=== PATIENT | male | born 1955 | race Caucasian/White ===

== ENCOUNTER 2019-06-27 15:30 | Observation (INO) ==
[2019-06-27] MEDS ORDERED: LORazepam 2 MG/1 ML VIAL IV STA ×3 (16:00→19:18)
[2019-06-27 16:16] LABS: Basophils % 0.3 % (0.0-0.8); Hematocrit 40.1 VOL% (42.0-52.0); Hemoglobin 13.4 GM/DL (14.0-18.0); Immature Granulocytes % 0.4 %; Immature Granulocytes Absolute 0.04 #; Lymphocytes # 1.2 10*3/uL (1.4-4.0); Lymphocytes % 12.3 % (21.2-54.2); Mean Corpuscular HGB Conc 33.4 GM/DL (32-36); Mean Corpuscular Volume 92.2 FL (87-102); Mean Platelet Volume 9.3 FL (9.6-12.0); Monocytes % 8.9 % (1.7-12.7); Neutrophils % 78.1 % (38.7-73.9); Platelet Count 313 T/CUMM (130-400); Red Blood Count 4.35 MC/CUMM (3.8-5.5); Red Cell Distribution Width 14.6 % (9.3-17.3)
[2019-06-27 16:24] LABS: PT Patient Result 11.1 SECS (9.6-12.2); Partial Thromboplastin Time 24.3 SECS (20.8-36.0)
[2019-06-27 16:40] LABS: Alanine Aminotransferase 26 U/L (16-61); Albumin 3.6 G/DL (3.4-5.0); Alkaline Phosphatase 128 U/L (45-117); Aspartate Amino Transferase 39 U/L (0-37); Blood Urea Nitrogen 23 MG/DL (7-18); Estimated Glom Filtration Rate 83 ML/MIN; Glucose 122 MG/DL (74-106); Osmolality,Calculated 281.5 MOS/KG (273-304); Total Protein 7.5 G/DL (6.4-8.3); Troponin I < 0.015 NG/ML (0.00-0.045)
[2019-06-27 18:01] LABS: Apearance,Urine CLEAR (Clear); Bilirubin,Urine Small mg/dL (Negative); Blood, Urine Large mg/dL (Negative); Calcium Oxalate Crystals,Urine Occasional /HPF (Few); Glucose,Urine (UA) Negative (Negative); Ketones,Urine 20 mg/dL (Negative); Mucus,Urine Occasional /LPF (Occasional); Nitrite,Urine Negative (Negative); Protein,Urine 30 MG/DL; RBC,Urine 102 /HPF (0-4); Sperm,Urine Occasional /HPF (Negative); Urine Color Amber (Yellow); Urine Specific Gravity 1.028 (1.001-1.035); Urine Urobilinogen < 2.0 EU/DL (0.2-1.0); WBC,Urine <1 /HPF (0-6)
[2019-06-27] MEDS ORDERED: ACETAMINOPHEN 325 MG TABLET PO PRN (18:08)
[2019-06-27] MEDS ORDERED: DOCUSATE SODIUM 100 MG CAPSULE PO PRN (18:08)
[2019-06-27] MEDS ORDERED: ONDANSETRON 4 MG/2 ML VIAL IV PRN (18:08)
[2019-06-27 18:22] LABS: Barbiturates Screen,Urine Negative (Negative); Benzodiazepines Screen,Urine Negative (Negative); Cannabinoid Screen,Urine Negative (Negative); Opiate Screen,Urine Negative (Negative); Phencyclidine Screen,Urine Negative (Negative)
[2019-06-27] MEDS: SODIUM CHLORIDE 0.45% 1,000 ML IV SCH (20:34)
[2019-06-27] MEDS ORDERED: INFLUENZA VIRUS VACCINE 0.5 ML SYRINGE IM ONE (20:41)
[2019-06-27] MEDS ORDERED: ENOXAPARIN 40 MG/0.4 ML SYRINGE SUBCUT SCH (21:00)
[2019-06-28] MEDS ORDERED: LORazepam 2 MG/1 ML VIAL IV PRN (00:16)
[2019-06-28 05:38] LABS: Basophils % 0.5 % (0.0-0.8); Eosinophils % 0.2 % (0.00-10.9); Hematocrit 36.9 VOL% (42.0-52.0); Hemoglobin 12.1 GM/DL (14.0-18.0); Immature Granulocytes % 0.4 %; Immature Granulocytes Absolute 0.03 #; Lymphocytes # 1.4 10*3/uL (1.4-4.0); Lymphocytes % 16.7 % (21.2-54.2); Mean Corpuscular HGB Conc 32.8 GM/DL (32-36); Mean Corpuscular Volume 94.9 FL (87-102); Mean Platelet Volume 9.4 FL (9.6-12.0); Monocytes % 9.8 % (1.7-12.7); Neutrophils % 72.4 % (38.7-73.9); Platelet Count 263 T/CUMM (130-400); Red Blood Count 3.89 MC/CUMM (3.8-5.5); Red Cell Distribution Width 15.2 % (9.3-17.3); White Blood Count 8.3 T/CUMM (4-12)
[2019-06-28 05:56] LABS: Calcium 8.5 MG/DL (8.5-10.1); Osmolality,Calculated 286.1 MOS/KG (273-304); Thyroid Stimulating Hormone 3.86 uIU/ml (0.358-3.74)
[2019-06-28] MEDS: SODIUM CHLORIDE 0.45% 1,000 ML IV SCH ×2 (09:41→11:33)
[2019-06-28 11:57] VITALS: BP 125/75
== END 2019-06-28 12:04 | disposition home or self-care (01) ==
LOC: N.EDINP 15:30 → N.ED 15:30 → N.2E 19:17
PROVIDERS: ADMIT Internal Medicine; ATTEND Internal Medicine